=== PATIENT | male | born 1965 | race Caucasian/White ===

== ENCOUNTER → 2016-07-30 | Outpatient (REF) | payer BC ==
[2016-07-30 16:40] LABS: BASO % 0.3 % (0.0-1.0); EOS # 0.2 K/mm3 (0.0-0.50); EOS % 2.8 % (0.0-3.0); LARGE UNSTAINED CELL # 0.1 K/mm3 (0.0-0.4); LARGE UNSTAINED CELL % 2.3 % (0.0-4.0); LYMPH # 1.7 K/mm3 (1.5-4.5); LYMPH % 32.2 % (24.0-44.0); MEAN CORPUSCULAR HEMOGLOBIN 33.3 pg (27.0-33.0); MEAN CORPUSCULAR HGB CONC 35.2 g/dl (32.0-36.5); MEAN CORPUSCULAR VOLUME 94.5 fl (80.0-96.0); MONO # 0.4 K/mm3 (0.0-0.8); MONO % 7.4 % (0.0-5.0); PLATELET COUNT, AUTOMATED 202 k/mm3 (150-450); RED CELL DISTRIBUTION WIDTH 12.6 % (11.5-14.5); WHITE BLOOD COUNT 5.4 K/mm3 (4.0-10.0)
[2016-07-30 17:05] LABS: ALBUMIN/GLOBULIN RATIO 1.38 (1.00-1.93); ALKALINE PHOSPHATASE 62 U/L (45-117); ALT/SGPT 36 U/L (12-78); ANION GAP 8 MEQ/L (8-16); AST/SGOT 23 U/L (15-37); BILIRUBIN,TOTAL 0.5 MG/DL (0.2-1.0); BLOOD UREA NITROGEN 16 MG/DL (7-18); CALCIUM LEVEL 8.5 MG/DL (8.5-10.1); CARBON DIOXIDE LEVEL 22 MEQ/L (21-32); CHLORIDE LEVEL 106 MEQ/L (98-107); CHOLESTEROL LEVEL 242 MG/DL (<200); CREATININE FOR GFR 1.08 MG/DL (0.70-1.30); GLOMERULAR FILTRATION RATE > 60.0 (>60); GLUCOSE, FASTING 96 MG/DL (70-105); POTASSIUM SERUM 4.5 MEQ/L (3.5-5.1); SODIUM LEVEL 136 MEQ/L (136-145); TOTAL PROTEIN 6.9 GM/DL (6.4-8.2); TRIGLYCERIDES LEVEL 246 MG/DL (<150)
== END ==
LOC: M SFHCCAPE 07:33
PROVIDERS: ATTEND Physician Assistant
DX: I10 Essential (primary) hypertension (principal)

== ENCOUNTER → 2017-09-10 | Outpatient (REF) | payer BC ==
[2017-09-10 16:49] LABS: ALBUMIN 4.3 GM/DL (3.2-5.2); ALBUMIN/GLOBULIN RATIO 1.48 (1.00-1.93); ALKALINE PHOSPHATASE 52 U/L (45-117); ALT/SGPT 38 U/L (12-78); ANION GAP 8 MEQ/L (8-16); AST/SGOT 23 U/L (7-37); BILIRUBIN,TOTAL 0.6 MG/DL (0.2-1.0); BLOOD UREA NITROGEN 16 MG/DL (7-18); CARBON DIOXIDE LEVEL 27 MEQ/L (21-32); CHLORIDE LEVEL 105 MEQ/L (98-107); CHOLESTEROL LEVEL 233 MG/DL (<200); CHOLESTEROL RISK RATIO 4.017 (<5); GLOMERULAR FILTRATION RATE > 60.0 (>56); GLUCOSE, FASTING 100 MG/DL (70-100); HDL CHOLESTEROL 58 MG/DL (>40); LDL CHOLESTEROL 150.2 MG/DL (<100); NON-HDL-C 175 MG/DL; POTASSIUM SERUM 4.6 MEQ/L (3.5-5.1); SODIUM LEVEL 140 MEQ/L (136-145); TOTAL PROTEIN 7.2 GM/DL (6.4-8.2); TRIGLYCERIDES LEVEL 124 MG/DL (<150)
== END ==
LOC: M SFHCCAPE 07:05
DX: I10 Essential (primary) hypertension (principal); E78.2 Mixed hyperlipidemia
CPT/HCPCS: 80053

== ENCOUNTER → 2017-09-15 | Outpatient (REF) | payer BC ==
[2017-09-15 17:12] LABS: VITAMIN B12 LEVEL 357 PG/ML
[2017-09-15 17:25] LABS: BASO % 0.4 % (0.0-1.0); EOS # 0.1 10^3/uL (0.0-0.50); EOS % 2.7 % (0.0-3.0); HEMATOCRIT 45.6 % (42.0-52.0); HEMOGLOBIN 15.8 g/dl (13.5-17.5); IMMATURE GRANULOCYTE % 0.7 % (0-3.0); LYMPH # 1.6 10^3/uL (1.5-4.5); LYMPH % 36.4 % (24.0-44.0); MEAN CORPUSCULAR HEMOGLOBIN 32.2 pg (27.0-33.0); MEAN CORPUSCULAR HGB CONC 34.6 g/dl (32.0-36.5); MEAN CORPUSCULAR VOLUME 92.9 fl (80.0-96.0); MONO # 0.5 10^3/uL (0.0-0.8); MONO % 10.7 % (0.0-5.0); NEUTROPHILS # 2.2 10^3/uL (1.8-7.7); NEUTROPHILS % 49.1 % (36.0-66.0); PLATELET COUNT, AUTOMATED 175 10^3/uL (150-450); RED BLOOD COUNT 4.91 10^6/uL (4.30-6.10); RED CELL DISTRIBUTION WIDTH 12.8 % (11.5-14.5); WHITE BLOOD COUNT 4.5 10^3/uL (4.0-10.0)
[2017-09-15 17:44] LABS: FREE T4 0.86 NG/DL (0.76-1.46)
[2017-09-15 18:02] LABS: ESTIMATED AVERAGE GLUCOSE 105 MG/DL (60-110); HEMOGLOBIN A1c 5.3 %
[2017-09-18 00:09] LABS: Lyme Disease IgG/IgM Antibodie <0.91 ISR (0.00-0.90); Lyme Disease IgM Ab Quantitati <0.80 index (0.00-0.79)
== END ==
LOC: M SFHCCAPE 08:41
DX: R53.83 Other fatigue (principal); F10.10 Alcohol abuse, uncomplicated
CPT/HCPCS: 82746

== ENCOUNTER → 2017-12-30 | Outpatient (REF) | payer BC ==
[2017-12-30 17:45] LABS: ALBUMIN 4.1 GM/DL (3.2-5.2); ALBUMIN/GLOBULIN RATIO 1.41 (1.00-1.93); ALKALINE PHOSPHATASE 51 U/L (45-117); ALT/SGPT 39 U/L (12-78); ANION GAP 8 MEQ/L (8-16); AST/SGOT 31 U/L (7-37); BILIRUBIN,TOTAL 0.8 MG/DL (0.2-1.0); BLOOD UREA NITROGEN 14 MG/DL (7-18); CALCIUM LEVEL 8.7 MG/DL (8.5-10.1); CARBON DIOXIDE LEVEL 24 MEQ/L (21-32); CHLORIDE LEVEL 108 MEQ/L (98-107); CHOLESTEROL LEVEL 190 MG/DL (<200); CHOLESTEROL RISK RATIO 2.923 (<5); CREATININE FOR GFR 1.11 MG/DL (0.70-1.30); GLOMERULAR FILTRATION RATE > 60.0 (>56); GLUCOSE, FASTING 89 MG/DL (70-100); HDL CHOLESTEROL 65 MG/DL (>40); LDL CHOLESTEROL 104 MG/DL (<100); NON-HDL-C 125 MG/DL; POTASSIUM SERUM 4.7 MEQ/L (3.5-5.1); SODIUM LEVEL 140 MEQ/L (136-145); TRIGLYCERIDES LEVEL 105 MG/DL (<150)
== END ==
LOC: M SFHCCAPE 07:57
DX: E78.2 Mixed hyperlipidemia (principal)
CPT/HCPCS: 80053

== ENCOUNTER → 2018-08-30 | Outpatient (REF) | payer BC ==
[2018-08-30 17:17] LABS: ALBUMIN 3.8 GM/DL (3.2-5.2); ALT/SGPT 35 U/L (12-78); BILIRUBIN,TOTAL 0.3 MG/DL (0.2-1.0); BLOOD UREA NITROGEN 17 MG/DL (7-18); CALCIUM LEVEL 8.6 MG/DL (8.5-10.1); CARBON DIOXIDE LEVEL 28 MEQ/L (21-32); CHLORIDE LEVEL 107 MEQ/L (98-107); CHOLESTEROL LEVEL 192 MG/DL (<200); CHOLESTEROL RISK RATIO 4.363 (<5); GLOMERULAR FILTRATION RATE > 60.0 (>56); GLUCOSE, FASTING 100 MG/DL (70-100); HDL CHOLESTEROL 44 MG/DL (>40); LDL CHOLESTEROL 93 MG/DL (<100); NON-HDL-C 148 MG/DL; POTASSIUM SERUM 4.7 MEQ/L (3.5-5.1); SODIUM LEVEL 140 MEQ/L (136-145); TOTAL PROTEIN 6.8 GM/DL (6.4-8.2); TRIGLYCERIDES LEVEL 273 MG/DL (<150)
== END ==
LOC: M SFHCCAPE 07:03
PROVIDERS: ATTEND Physician Assistant
DX: I10 Essential (primary) hypertension (principal)

== ENCOUNTER → 2019-04-21 | Outpatient (REF) | payer BC ==
[2019-04-21 17:03] LABS: BASO % 0.3 % (0.0-1.0); EOS # 0.3 10^3/uL (0.0-0.5); EOS % 3.9 % (0.0-3.0); LYMPH # 1.7 10^3/uL (1.5-5.0); MEAN CORPUSCULAR HEMOGLOBIN 32.1 pg (27.0-33.0); MEAN CORPUSCULAR VOLUME 94.4 fl (80.0-96.0); MONO # 0.8 10^3/uL (0.0-0.8); MONO % 11.4 % (0.0-5.0); NEUTROPHILS # 3.9 10^3/uL (1.5-8.5); NEUTROPHILS % 57.8 % (36.0-66.0); PLATELET COUNT, AUTOMATED 199 10^3/uL (150-450); RED BLOOD COUNT 4.98 10^6/uL (4.30-6.10); WHITE BLOOD COUNT 6.7 10^3/uL (4.0-10.0)
[2019-04-21 17:16] LABS: ALT/SGPT 37 U/L (12-78); BILIRUBIN,TOTAL 0.4 MG/DL (0.2-1.0); BLOOD UREA NITROGEN 17 MG/DL (7-18); CALCIUM LEVEL 8.9 MG/DL (8.5-10.1); CARBON DIOXIDE LEVEL 28 MEQ/L (21-32); CHLORIDE LEVEL 106 MEQ/L (98-107); CHOLESTEROL LEVEL 236 MG/DL (<200); CREATININE FOR GFR 1.05 MG/DL (0.70-1.30); GLOMERULAR FILTRATION RATE > 60.0 (>56); GLUCOSE, FASTING 96 MG/DL (70-100); HDL CHOLESTEROL 50 MG/DL (>40); LDL CHOLESTEROL 142 MG/DL (<100); NON-HDL-C 186 MG/DL; POTASSIUM SERUM 4.8 MEQ/L (3.5-5.1); SODIUM LEVEL 140 MEQ/L (136-145); TOTAL PROTEIN 6.9 GM/DL (6.4-8.2); TRIGLYCERIDES LEVEL 222 MG/DL (<150)
[2019-04-21 17:30] LABS: HEMOGLOBIN A1c 5.3 %
[2019-04-21 17:32] LABS: FOLATE 13.3 NG/ML; VITAMIN B12 LEVEL 541 PG/ML
== END ==
LOC: M SFHCCAPE 07:04
PROVIDERS: ATTEND Physician Assistant
DX: I10 Essential (primary) hypertension (principal); F10.10 Alcohol abuse, uncomplicated

== ENCOUNTER → 2020-03-27 | Outpatient (CLI) | payer SELFPAY | LOC: M LABSMTC 10:35 | PROVIDERS: ATTEND Pediatrics | DX: Z20.828 Contact with and (suspected) exposure to other viral communicable diseases (principal) ==

== ENCOUNTER → 2020-04-24 | Outpatient (REF) | payer BC ==
[2020-04-24 11:30] LABS: APPEARANCE, URINE CLEAR (CLEAR); BACTERIA, URINE AUTO NEGATIVE (NEGATIVE); BILIRUBIN, URINE AUTO NEGATIVE (NEGATIVE); BLOOD, URINE BLOOD NEGATIVE (NEGATIVE); COLOR, URINE YELLOW (YELLOW); GLUCOSE, URINE (UA) AUTO NEGATIVE (NEGATIVE); KETONE, URINE AUTO NEGATIVE (NEGATIVE); LEUKOCYTE ESTERASE, URINE AUTO NEGATIVE (NEGATIVE); MUCUS, URINE SMALL (NEGATIVE); NITRITE, URINE AUTO NEGATIVE (NEGATIVE); PROTEIN, URINE AUTO NEGATIVE (NEGATIVE); RBC, URINE AUTO 0 /HPF (0-3); SQUAMOUS EPITHELIAL CELL UR AU 0 /HPF (0-6); UROBILINOGEN, URINE AUTO 0.2 mg/dL (0.0-2.0); WBC, URINE AUTO 0 /HPF (0-3)
[2020-04-24 11:42] LABS: BASO % 0.5 % (0.0-1.0); EOS # 0.2 10^3/uL (0.0-0.5); EOS % 3.2 % (0.0-3.0); HEMATOCRIT 47.9 % (42.0-52.0); HEMOGLOBIN 16.6 g/dl (13.5-17.5); LYMPH # 2.1 10^3/uL (1.5-5.0); LYMPH % 35.1 % (24.0-44.0); MEAN CORPUSCULAR HGB CONC 34.7 g/dl (32.0-36.5); MEAN CORPUSCULAR VOLUME 92.3 fl (80.0-96.0); MONO # 0.8 10^3/uL (0.0-0.8); MONO % 13.3 % (0.0-5.0); NEUTROPHILS # 2.8 10^3/uL (1.5-8.5); NEUTROPHILS % 47.1 % (36.0-66.0); PLATELET COUNT, AUTOMATED 210 10^3/uL (150-450); RED BLOOD COUNT 5.19 10^6/uL (4.30-6.10)
[2020-04-24 12:24] LABS: ALBUMIN 4.3 GM/DL (3.2-5.2); ALT/SGPT 38 U/L (12-78); BILIRUBIN,TOTAL 0.4 MG/DL (0.2-1.0); BLOOD UREA NITROGEN 20 MG/DL (7-18); CALCIUM LEVEL 9.8 MG/DL (8.5-10.1); CARBON DIOXIDE LEVEL 29 MEQ/L (21-32); CHLORIDE LEVEL 101 MEQ/L (98-107); CHOLESTEROL LEVEL 280 MG/DL (<200); CHOLESTEROL RISK RATIO 7.179 (<5); CREATININE FOR GFR 1.23 MG/DL (0.70-1.30); GLOMERULAR FILTRATION RATE > 60.0 (>56); GLUCOSE, FASTING 110 MG/DL (70-100); HDL CHOLESTEROL 39 MG/DL (>40); NON-HDL-C 241 MG/DL; POTASSIUM SERUM 4.8 MEQ/L (3.5-5.1); SODIUM LEVEL 136 MEQ/L (136-145); TRIGLYCERIDES LEVEL 752 MG/DL (<150)
[2020-04-24 13:12] LABS: TOTAL 25(OH) VITAMIN D 29.1 NG/ML (30.0-100.0)
== END ==
LOC: M SFHCCLAY 06:54
PROVIDERS: ATTEND Physician Assistant
DX: E78.2 Mixed hyperlipidemia (principal); I10 Essential (primary) hypertension; Z12.5 Encounter for screening for malignant neoplasm of prostate; E55.9 Vitamin D deficiency, unspecified
CPT/HCPCS: 80053; 80061; 81001; 82306; 84443; 85025; G0103

== ENCOUNTER 2021-02-25 09:04 | Emergency (ER) | payer BC ==
[~2021-02-25] VITALS: Ht 172.7 cm; Wt 88.5 kg
[2021-02-25] MEDS ORDERED: LISI10TA22 (09:13)
[2021-02-25] MEDS ORDERED: BENZ200C70 PO (11:37)
[2021-02-25] MEDS ORDERED: VENTAER INH (11:37)
[2021-02-25] MEDS ORDERED: MUCI600T31 PO (11:37)
[2021-02-25 12:03] VITALS: BP 138/78
== END 2021-02-25 12:06 | disposition home or self-care (01) ==
LOC: M ED 09:04
DX: J20.5 Acute bronchitis due to respiratory syncytial virus (principal); I10 Essential (primary) hypertension; Z79.899 Other long term (current) drug therapy; F17.210 Nicotine dependence, cigarettes, uncomplicated

== ENCOUNTER → 2021-04-22 | Outpatient (CLI) | payer OTHER ==
[~2021-04-22] MED LIST: BENZ200C70 PO; LISI10TA22; MUCI600T31 PO; VENTAER INH
== END ==
LOC: M RAD 07:40
PROVIDERS: ATTEND Physician Assistant Medical
DX: R19.01 Right upper quadrant abdominal swelling, mass and lump (principal)

== ENCOUNTER → 2021-05-03 | Outpatient (CLI) | payer OTHER ==
[~2021-05-03] MED LIST changes: +GASTROGRAFIN SOLUTION 30ML (Q9963) As Ordered ONE
== END ==
LOC: M RAD 15:57
PROVIDERS: ATTEND Physician Assistant Medical
DX: R19.01 Right upper quadrant abdominal swelling, mass and lump (principal)
CPT/HCPCS: 74176; Q9963

== ENCOUNTER → 2022-10-23 | Outpatient (CLI) | payer OTHER ==
[~2022-10-23] MED LIST changes: -GASTROGRAFIN SOLUTION 30ML (Q9963) As Ordered ONE
== END ==
LOC: M WUC 08:53
PROVIDERS: ATTEND Physician Assistant Medical
DX: R05.9 Cough, unspecified (principal)

== ENCOUNTER → 2022-10-27 | Outpatient (REF) | payer OTHER ==
[2022-10-29 09:08] LABS: LDL DIRECT 112 mg/dL (0-99)
== END ==
LOC: M LAB REF 16:17
PROVIDERS: ATTEND Internal Medicine
DX: E78.00 Pure hypercholesterolemia, unspecified (principal)

== ENCOUNTER 2023-10-21 08:30 | Day surgery (SDC) | payer OTHER ==
[~2023-10-21] VITALS: Ht 170.2 cm; Wt 86.3 kg
[~2023-10-21 08:30] MED LIST changes: +LISI20TA33 PO
[2023-10-21] MEDS: NS 1,000 ML IV SCH (08:48)
[2023-10-21] MEDS ORDERED: propofoL 200 MG/20 ML VIAL As Ordered ONE (10:37)
[2023-10-21 10:52] VITALS: TEMP 97.7
[2023-10-21 11:16] VITALS: BP 108/57; O2SAT 98
== END 2023-10-21 11:30 | disposition home or self-care (01) ==
LOC: M OPP 08:30
PROVIDERS: ATTEND Internal Medicine Gastroenterology
DX: Z12.11 Encounter for screening for malignant neoplasm of colon (principal); D12.8 Benign neoplasm of rectum; K64.0 First degree hemorrhoids; I10 Essential (primary) hypertension; F17.200 Nicotine dependence, unspecified, uncomplicated; Z79.899 Other long term (current) drug therapy